=== PATIENT | male | born 1990 ===

== ENCOUNTER 2018-09-15 20:59 | Emergency (ER) | payer SELFPAY ==
[2018-09-15 21:01] VITALS: BP 130/59; PULSE 63; RESP 18; TEMP 36.7; O2SAT 96; BMI 22.4
== END 2018-09-15 21:49 | disposition left against medical advice (07) ==
LOC: ED 21:44
PROVIDERS: Emergency Provider Emergency Medicine
DX: K08.89 Other specified disorders of teeth and supporting structures (principal); Z53.21 Procedure and treatment not carried out due to patient leaving prior to being seen by health care provider